=== PATIENT | male | born 1975 | race Caucasian/White ===

== ENCOUNTER 2021-08-24 17:39 | Emergency (ER) | payer OTHER, SELFPAY ==
[2021-08-24 18:08] VITALS: BP 157/84; PULSE 95; RESP 16; TEMP 37.6
--- NOTE | 2021-08-24 18:29 | XRR_ITS ---
PROCEDURE INFORMATION: Exam: XR Chest Exam date and time: 08/24/2021 6:29 PM Age: 45 years old Clinical indication: Cough; Additional info: SOB, cough TECHNIQUE: Imaging protocol: XR of the chest. Views: 1 view. COMPARISON: No relevant prior studies available. FINDINGS: Lungs: Unremarkable. No consolidation. Pleural spaces: Unremarkable. No pleural effusion. No pneumothorax. Heart/Mediastinum: Unremarkable. No cardiomegaly. Bones/joints: Unremarkable. XR/XR chest 1V portable [id number] IMPRESSION: No acute findings. Radiation Dose CTDIVOL = (mGy): DLP = (mGy-cm)
--- NOTE | 2021-08-24 18:37 | ED_ITS ---
Documented by User: CLAIRE Walsh 08/24/21 19:31 HPI - COVID General: Chief Complaint: COVID symptoms Stated Complaint: Covid+, Day 8 Time Seen by Provider: 08/24/21 18:35 Triage information: Has fever, cough or shortness of breath . Exposure to COVID + person last 14 days History of Present Illness: HPI Narrative: Patient complains about Covid positive and start symptoms 8 days ago. Has 2 brothers in the hospital with Covid. Patient states he was feeling better until today started fever again and cough wants get checked out. Has been doing albuterol treatments and zinc treatments and not drinking cold liquids. Presently on Anders CERDA complaint: known COVID positive Prior covid testing: yes, results known Prior testing date: 08/20/21 COVID 19 common symptoms: positive cough, non-productive cough and dyspnea; negative fever(s), chills, body aches, headache(s), throat pain, nasal congestion, nausea or vomiting COVID 19 other sytmptoms: negative chest pain Onset (ago): day(s) Severity: mild Pertinent comorbid conditions: hypertension Treatment prior to arrival: acetaminophen, ibuprofen, antibiotics and breathing treatments COVID Results: No Data to Display Review of Systems Const: Denies: fever(s), chills or body aches Eyes: Denies: change in vision or blurry vision ENMT: Reports: other (Sinus congestion); Denies: throat pain or nasal congestion Card: Denies: chest pain or dyspnea on exertion Resp: Reports: dyspnea and non-productive cough GI: Denies: abdominal pain, nausea or vomiting : Denies: difficulty urinating Musc: Denies: extremity pain Skin/Breast: Denies: rash Neuro: Denies: headache(s) Psych: Denies: anxiety or depression Long/Lymph: Denies: easy bruising Physical Exam Const: COMMON NORMALS: no acute distress, average body habitus and patient oriented x3 HENMT: COMMON NORMALS: normocephalic HEAD & SCALP: normal to inspection and normocephalic FACE & SINUS: normal facial exam Eye: COMMON NORMALS: conjunctivae normal GENERAL EYE: appearance normal, both eyes and all related structures CONJUNCTIVA: Yes conjunctivae normal Neck/C-Spine: COMMON NORMALS: no JVD Chest: COMMONS NORMALS: normal inspection of the chest Resp: COMMON NORMALS: normal respiratory effort and clear to auscultation bilaterally AUSCULTATION: clear to auscultation bilaterally Cardio: COMMON NORMALS: no JVD, regular rate and regular rhythm RATE: regular rate RHYTHM: regular rhythm GI: COMMON NORMALS: Normal to inspection, nondistended, normoactive bowel sounds present Extremity: COMMON NORMALS: normal to inspection and full ROM Neuro: COMMON NORMALS: patient oriented x3 Course Vital Signs: Vital signs: Vital Signs Temperature 99.6 F 08/24/21 18:08 Pulse Rate 84 08/24/21 19:17 Respiratory Rate 16 08/24/21 19:17 Blood Pressure 157/84 08/24/21 18:08 Pulse Oximetry 97 08/24/21 19:17 MDM - COVID MDM Narrative: Medical decision making narrative: Radiology study was negative. O2 sats remained stable to 9790% while here. Went over signs symptoms Covid and and projected course with patient. COVID Results: No Data to Display Discharge Plan Discharge Patient Disposition: Home Clinical Impression: COVID-19 Condition: Stable Prescriptions: New Decadron 6 mg tablet 6 mg PO DAILY Qty: 7 RF: 0 Zithromax Z-Luciano 250 mg tablet See Rx Instructions PO .COMPLEX Qty: 6 RF: 0 Discharge Orders: Discharge ED (Routine); Ordered 08/24/21 Ordered By: Dominick Jo Discharge Diet: Usual diet Discharge Activity: Increase activity as tolerated Activity Restrictions/Additional Instructions: Quarantine 10 days from*symptoms. Take Tylenol and/or ibuprofen for discomfort. Continue home treatment remedies to treat using presently. Follow-up your family medical provider if no significant improvement. Or can return here. Take medications as directed. Coding Level of Care Code ED [employer] Ump[employer] for Chg Fwd Exam Comprehensive Documented by User: Fredy Bernal DO 08/27/21 07:33 HPI - COVID General: Chief Complaint: COVID symptoms Stated Complaint: Covid+, Day 8 Time Seen by Provider: 08/24/21 18:35 COVID Results: No Data to Display Course Vital Signs: Vital signs: Vital Signs Temperature 99.6 F 08/24/21 18:08 Pulse Rate 84 08/24/21 19:17 Respiratory Rate 16 08/24/21 19:17 Blood Pressure 157/84 08/24/21 18:08 Pulse Oximetry 97 08/24/21 19:17 MDM - COVID MDM Narrative: Medical decision making narrative: Chart reviewed. Agree with assessment and plan. COVID Results: No Data to Display Discharge Plan Discharge Patient Disposition: Home Clinical Impression: COVID-19 Condition: Stable Prescriptions: New Decadron 6 mg tablet 6 mg PO DAILY Qty: 7 RF: 0 Zithromax Z-Luciano 250 mg tablet See Rx Instructions PO .COMPLEX Qty: 6 RF: 0 Discharge Orders: Discharge ED (Routine); Ordered 08/24/21 Ordered By: Dominick Jo Discharge Diet: Usual diet Discharge Activity: Increase activity as tolerated Activity Restrictions/Additional Instructions: Quarantine 10 days from*symptoms. Take Tylenol and/or ibuprofen for discomfort. Continue home treatment remedies to treat using presently. Follow-up your family medical provider if no significant improvement. Or can return here. Take medications as directed. Coding Level of Care Code ED [employer] Ump[employer] for Riaz Fwmaxx Exam Comprehensive
[2021-08-24 19:17] VITALS: PULSE 84; RESP 16; O2SAT 97
[2021-08-24] MEDS: dexamethasone 4 mg Tablet 10 MG PO (19:17)
== END 2021-08-24 19:18 | disposition home or self-care (01) ==
PROVIDERS: Emergency Provider Nurse Practitioner Family
DX: U07.1 COVID-19 (principal)
CPT/HCPCS: 71045; 99283; J8540